=== PATIENT | female | born 1985 | race Two or more races ===

== ENCOUNTER → 2024-03-27 | Outpatient (CLI) | payer MEDICAID, SELFPAY ==
--- NOTE | 2024-03-27 08:15 | XR_ITS ---
Examination: Diagnostic digital mammography, unilateral, left Computer aided detection 3-D breast Tomosynthesis, unilateral Date and time of exam: March 27, 2024 0840 hours INDICATIONS: Mammogram January 19, 2024 10 mm focal asymmetry upper left breast MLO view, 3.5 cm from the nipple Technique: Nonmagnified MLO, CC views of the left breast have been obtained, reconstructed from 3-D Tomosynthesis images. R2 computer aided detection program utilized for evaluation of suspicious masses and/or abnormal calcifications. 3-D Tomosynthesis images obtained. Findings: The breast is heterogeneously dense, which may obscure small masses No suspicious mass noted on the spot compression views Impression: BI-RADS category 2: Benign findings Return to yearly follow-up mammography
== END | disposition home or self-care (01) ==
LOC: CDIM 08:25
PROVIDERS: Referring Provider Internal Medicine Hematology & Oncology; Visit Provider Internal Medicine Hematology & Oncology
DX: R92.322 Mammographic fibroglandular density, left breast (principal); Z85.43 Personal history of malignant neoplasm of ovary
CPT/HCPCS: 77061; 77065; G0279

== ENCOUNTER → 2024-05-07 | Outpatient (CLI) | payer MEDICAID, SELFPAY ==
--- NOTE | 2024-05-07 10:00 | XR_ITS ---
Examination: CT abdomen with intravenous contrast CT pelvis with intravenous contrast 2-D coronal reconstructions 2-D sagittal reconstructions Date and time of exam:April 29, 2024 11:00 AM Comparison January 12, 2024 INDICATIONS: Diagnosis malignant neoplasm ovary, post hysterectomy, abdominal pain hematuria beginning 2 months ago. CTDI: vol (mGy) 19.2 DLP: (mGycm) 590 Technique: Multiple axial sections of the abdomen and pelvis have been obtained. 64 slice high-resolution scanner used. 3 mm axial sections have been obtained, post intravenous injection 60 cc [id number] 2-D sagittal, coronal reconstructions obtained. Low dose protocols were performed. One or more of the following dose reduction techniques were used; automated exposure control, adjustment of the mA and/or KV according to patient size, use of iterative reconstruction technique. Findings: No focal liver or splenic lesions No gallstones No pancreatic or adrenal mass No renal or ureteral calculi No pathologic abdominal or pelvic lymphadenopathy No bowel obstruction Normal appendix No diverticulitis Anteverted uterus No adnexal mass Urinary bladder intact Osseous structures intact IMPRESSION: No interval metastatic disease No renal or ureteral calculi, no hydronephrosis No bladder mass or bladder calculi
== END | disposition home or self-care (01) ==
LOC: CCTX 09:50
PROVIDERS: PCP Family Medicine; Referring Provider Internal Medicine Hematology & Oncology; Visit Provider Internal Medicine Hematology & Oncology
DX: R10.9 Unspecified abdominal pain (principal); Z85.43 Personal history of malignant neoplasm of ovary
CPT/HCPCS: 74177; A4649; Q9967

== ENCOUNTER 2024-08-15 13:04 | Outpatient (RCR) | payer MEDICAID, SELFPAY ==
--- NOTE | 2024-08-18 22:00 | CTCFLWUP_ITS ---
Patient: BILL REEVES : 1985 Page 4 of 6 FOLLOW UP NOTE DATE OF SERVICE: 08/15/2024 NAME: BILL REEVES ACCOUNT: [id number] : 1985 AGE: 38 INTERVAL HISTORY: Subjective: Chief Complaint Stomach inflammation, colic pain, and swelling for over a month, leg swelling for over a month, weight gain, frequent herpes outbreaks History of Present Illness Lala cardenas is a patient with a history of bilateral ovarian cancer, status post-oophorectomy at 18 and 35, presenting with stomach inflammation, colic pain, and leg swelling for over a month. The patient also reports weight gain and frequent herpes outbreaks. The patient has been experiencing stomach inflammation, colic pain, and swelling, particularly in the legs, for more than a month. These symptoms are accompanied by noticeable weight gain. The patient does not mention any specific aggravating or alleviating factors for these symptoms, nor does she describe their severity or impact on daily functioning. In addition to the gastrointestinal and edema symptoms, the patient reports frequent herpes outbreaks. These outbreaks are being treated with valacyclovir, but the frequency of occurrences suggests that the current treatment may not be fully effective. The patient's overall health status appears to have changed since the last visit, with the emergence of new gastrointestinal symptoms and leg swelling. At the previous visit, the patient had complained of vaginal bleeding, but this symptom is not mentioned in the current visit, suggesting it may have resolved. Regarding treatment adherence, the patient continues to take estradiol 0.5 mg daily and progesterone 100 mg daily as part of her hormone replacement therapy. She is also taking valacyclovir for herpes outbreaks, although the frequency of outbreaks suggests a need for treatment adjustment. Medical History - Bilateral ovarian cancer - Stomach inflammation - Colic pain - Leg swelling - Weight gain - Frequent herpes outbreaks Surgical History - Left oophorectomy at age 35 - Bilateral oophorectomy at age 18 Medications and Supplements - Estradiol 0.5 mg by mouth daily - Progesterone 100 mg by mouth daily - Valacyclovir 500 mg by mouth daily - Treats frequent herpes outbreaks - Vitamin D - Dosage not specified Social History - Exercise: Exercise suggested to manage weight gain Immunizations - Herpes: Patient referred to infectious disease specialist for potential vaccination Review of Systems General: Positive for weight gain. Gastrointestinal: Positive for stomach inflammation, colic pain. Musculoskeletal: Positive for leg swelling. Genitourinary: Positive for vaginal bleeding. Objective: Laboratory, Imaging, and Diagnostic Test Results - CT (May 07, 2024): No evidence of metastatic disease - Tumor markers: Normal - Hemoglobin: Normal - Kidney function tests: Normal - Liver function tests: Normal - Genetic testing for breast cancer risk: Negative Assessment and Plan: Lala cardenas, female with history of bilateral ovarian cancer status post-oophorectomy, presents with stomach inflammation, colic pain, and leg swelling for over a month, along with weight gain and frequent herpes outbreaks. Bilateral ovarian cancer, status post-oophorectomy Assessment: Patient has a history of bilateral ovarian cancer, with left oophorectomy at age 35 and right oophorectomy at age [address] scan on May 07, 2024, showed no evidence of metastatic disease. Current tumor markers, hemoglobin, kidney, and liver functions are normal, indicating no active disease. 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 Claritin - 10 mg 1 tab Daily 2. escitalopram oxalate - 10 mg 1 tab Daily 3. estradiol - 0.5 mg 1 tab Daily 4. Flonase Allergy Relief - 50 mcg/actuation 1 spray Daily 5. Fluticasone Propionate (Nasal) - 50 mcg/DOSE 1 spray Daily 6. proGESTerone micronized - 100 mg 1 Capsule Daily 7. pseudoephedrine HCl - 120 mg 1 tab Every 12 Hours 8. sertraline - 25 mg 1 tab Daily Medications Last Reconciled by Alessia Lay RN on 08/15/2024 ALLERGIES: REVIEW OF SYSTEMS: A complete 14-point review of systems was performed and is negative except as noted in interval history. PHYSICAL EXAMINATION: VITAL SIGNS: Temperature?99.8, B/P?106/80, Oxygen?Saturation?98% Weight?166?lbs PAIN: 2 - Mild pain ECOG Performance Status: 0 - Asymptomatic and fully active GENERAL APPEARANCE: Appears well, in no apparent distress, appropriately interactive. HEENT: Normocephalic, no temporal wasting, normal conjunctiva, no scleral icterus, normal hearing, lips without lesions, neck normal range of motion. CARDIOVASCULAR: Not assessed. PULMONARY: Normal respiratory effort, no respiratory distress or use of accessory muscles, speaking in full sentences, no tachypnea. EXTREMITIES: No pedal edema or cyanosis. SKIN: Normal skin appearance. NEUROLOGIC: Alert and oriented x4. PSHYCHIATRIC: Appropriate affect, mood normal, behavior normal, intact thought and speech. LABORATORY DATA: I have personally reviewed and interpreted each of the patient?s relevant lab tests, abnormal findings are below: Date 01/30/24 ??WHITE?BLOOD?COUNT?(Thou/mm3) 6.3 ??RED?BLOOD?COUNT?(Miln/mm3) 4.93 ??HEMOGLOBIN?(gm/dl) 14.0 ??HEMATOCRIT?(%) 42.6 ??PLATELET?COUNT?(Thou/mm3) 277 ??NEUTROPHILS?%,?AUTO?(%) 53 ??LYMPH?%,?AUTO?(%) 38 ??NEUTROPHILS,?AUTO?(Thou/mm3) 3.4 ??GLUCOSE,RANDOM?(mg/dL) 89 ??BLOOD?UREA?NITROGEN?(mg/dL) 13 ??CREATININE?(mg/dL) 0.70 ??SODIUM?(mmol/L) 137 ??POTASSIUM?(mmol/L) 4.0 ??CHLORIDE?(mmol/L) 107 ??CrCl?(CandG)?(ml/min) 122.13 ??AST/SGOT?(Unit/L) <?8 ??ALT/SGPT?(Unit/L) 20 ??ALKALINE?PHOSPHATASE?(Unit/L) 106 ??BILIRUBIN,?TOTAL?(mg/dL) 0.5 ??PROTEIN?TOTAL?(gm/dl) 7.3 ??ALBUMIN,?SERUM?(gm/dl) 4.8 ??GLOBULIN?(gm/dl) 2.5 ??ALBUMIN/GLOBULIN?RATIO 1.9 ??CALCIUM,?SERUM?(mg/dL) 10.0 ??CALCIUM?SERUM?(CORRECTED)?(mg/dL) 10.0 ??CEA?(O*)?(ng/ml) 1.7 ??CA?125?(O*)?(Unit/mL) 9.0 ASSESSMENT/PLAN: 1. History of bilateral ovarian cancers. 2. S/p right oophorectomy for ovarian cancer when patient was 18 years of age. 3. Status post left oophorectomy for ovarian cancer at age 35. 4. Maternal grandmother as well as paternal aunt had breast cancers. Assessment: Patient reports stomach inflammation, colic pain, and swelling, particularly in the legs, for over a month. These symptoms, along with weight gain, may be related to hormone replacement therapy or other underlying causes. Further evaluation may be necessary to determine the etiology. Plan: - Monitor symptoms and weight - Encourage exercise to manage weight gain Hormone replacement therapy Assessment: Patient is currently on estradiol 0.5 mg daily and progesterone 100 mg daily for hormone replacement therapy. Given the patient's history of ovarian cancer and slightly elevated breast cancer risk (16% compared to 13% in the general population), continuation of hormone therapy requires careful consideration. Plan: - Continue estradiol 0.5 mg PO daily - Continue progesterone 100 mg PO daily - Advise discontinuation of hormone replacement therapy by age 45-47 to reduce breast cancer risk - Recommend daily Vitamin D supplementation Recurrent herpes outbreaks Assessment: Patient reports frequent herpes outbreaks, currently treated with valacyclovir. The frequency of outbreaks suggests the need for more aggressive management and potential preventive measures. Plan: - Prescribe valacyclovir 500 mg PO daily for suppression - Advise increased water intake - Refer to infectious disease specialist for potential vaccination Cancer surveillance Assessment: Given the patient's history of ovarian cancer and slightly elevated breast cancer risk, ongoing cancer surveillance is crucial. Genetic testing for breast cancer risk was negative, but regular monitoring is still warranted. Plan: - Continue regular mammograms as advised - Maintain regular follow-up appointments for cancer surveillanceHISTORY OF PRESENT ILLNESS: Bill Reeves is a 38-year-old S[place] speaking Other female has the following oncology history. She recently came to [facility]. She does not have any medical records with her. All this information that I am documenting below is verbally conveyed to me by the. At age 18 she had her right ovary removed for ovarian cancer. Ms. Reeves states that she had a large mass in the right ovary and it was removed. She did not get any chemotherapy or radiation therapy at that time. At age 35 she had her left ovary removed for a large tumor. Again she did not get any chemotherapy or radiation. She did not have hysterectomy done. Patient's paternal grandmother had breast cancer. Patient's paternal aunt also had breast cancer. ORDERS: Order # Description [id number] 3D Mammogram Screening + Bilateral [id number] Comprehensive Metabolic Panel - 12 + CBC with Auto Diff + CA 125 RETURN TO CLINIC: BILLING AND COMPLIANCE: I reviewed external records from providers outside my specialty as summarized above. I spent a total of 50 minutes on this patient?s care on the day of their visit excluding time spent related to any billed procedures. This time includes time spent with the patient as well as time spent documenting in the medical record, reviewing patients records and tests, obtaining history, placing orders, communicating with other healthcare professionals, counseling the patient, family or caregiver, and/or care coordination for the diagnoses above. Electronically Signed by: Abelino Cline MD T: 9:57 PM CC: PCP: Abelino Cline Referring: Abelino Cline This document was completed utilizing speech recognition software. Grammatical errors, random word insertions, pronoun errors, and incomplete sentences are an occasional consequence of this system due to software limitations, ambient noise, and hardware issues. Any formal questions or concerns about the content, text or information contained within the body of this dictation should be directly addressed to the provider for clarification.
== END 2024-09-07 23:59 | disposition home or self-care (01) ==
LOC: SCTC 13:04
PROVIDERS: PCP Physician Assistant Medical; Referring Provider Internal Medicine Hematology & Oncology; Visit Provider Internal Medicine Hematology & Oncology
DX: Z08 Encounter for follow-up examination after completed treatment for malignant neoplasm (principal); Z85.43 Personal history of malignant neoplasm of ovary; Z90.722 Acquired absence of ovaries, bilateral; Z80.3 Family history of malignant neoplasm of breast; B00.9 Herpesviral infection, unspecified; Z79.899 Other long term (current) drug therapy; Z79.890 Hormone replacement therapy
CPT/HCPCS: 99213; G0463

== ENCOUNTER 2025-02-13 11:27 | Outpatient (RCR) | payer MEDICAID, SELFPAY ==
--- NOTE | 2025-02-18 17:33 | CTCFLWUP_ITS ---
Patient: BILL ABBOTT : 1985 Page 2 of 5 FOLLOW UP NOTE DATE OF SERVICE: 02/13/2025 NAME: BILL ABBOTT ACCOUNT: [id number] : 1985 AGE: 39 INTERVAL HISTORY: Patient is on HRT therapy and c/o bleeding in vagina . spotting , breast tenderness. [place] and no records awailable for us. No benefit from acyclovir ONCOLOGY HISTORY: DIAGNOSIS: Ovarian cancer /mass history DATE OF DIAGNOSIS: Unknown STAGE/TNM: Likely ear;ly stage as no adjuvant therapy was done TREATMENT HISTORY: Care?Plan Start?Date Cycle Day Intent HISTORY OF PRESENT ILLNESS: Lala cardenas is a patient with a history of bilateral ovarian cancer, status post-oophorectomy at 18 and 35, presenting with stomach inflammation, colic pain, and leg swelling for over a month. The patient also reports weight gain and frequent herpes outbreaks.Regarding treatment adherence, the patient continues to take estradiol 0.5 mg daily and progesterone 100 mg daily as part of her hormone replacement therapy. She is also taking valacyclovir for herpes outbreaks, although the frequency of outbreaks suggests a need for treatment adjustment. Patient came to [facility]. She does not have any medical records with her. All this information that I am documenting below is verbally conveyed to me by the patient . At age 18 she had her right ovary removed for ovarian cancer. Ms. Abbott states that she had a large mass in the right ovary and it was removed. She did not get any chemotherapy or radiation therapy at that time. At age 35 she had her left ovary removed for a large tumor. Again she did not get any chemotherapy or radiation. She did not have hysterectomy done. Patient's paternal grandmother had breast cancer. Patient's paternal aunt also had breast cancer. 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 Claritin - 10 mg 1 tab Daily 2. Cortisone (hydrocortisone) - 1 % 10 mg Daily 3. escitalopram oxalate - 10 mg 1 tab Daily 4. estradiol - 0.5 mg 1 tab Daily 5. Flonase Allergy Relief - 50 mcg/actuation 1 spray Daily 6. Fluticasone Propionate (Nasal) - 50 mcg/DOSE 1 spray Daily 7. proGESTerone micronized - 100 mg 1 Capsule Daily 8. pseudoephedrine HCl - 120 mg 1 tab Every 12 Hours 9. sertraline - 25 mg 1 tab Daily 10. venlafaxine - 37.5 mg 1 tab Daily Medications Last Reconciled by Lashell Chamberlain MD on 02/13/2025 ALLERGIES: REVIEW OF SYSTEMS: A complete 14-point review of systems was performed and is negative except as noted in interval history. PHYSICAL EXAMINATION: VITAL SIGNS: Temperature?97.1, B/P?106/67, Oxygen?Saturation?99% Weight?174?lbs PAIN: 0 - No pain ECOG Performance Status: 1 - Symptomatic; ambulatory; restricted in strenuous activity GENERAL APPEARANCE: Appears well, in no apparent distress, appropriately interactive. HEENT: Normocephalic, no temporal wasting, normal conjunctiva, no scleral icterus, normal hearing, lips without lesions, neck normal range of motion. CARDIOVASCULAR: Not assessed. PULMONARY: Normal respiratory effort, no respiratory distress or use of accessory muscles, speaking in full sentences, no tachypnea. EXTREMITIES: No pedal edema or cyanosis. SKIN: Normal skin appearance. NEUROLOGIC: Alert and oriented x4. PSHYCHIATRIC: Appropriate affect, mood normal, behavior normal, intact thought and speech. LABORATORY DATA: I have personally reviewed and interpreted each of the patient?s relevant lab tests, abnormal findings are below: Date 01/30/24 ??WHITE?BLOOD?COUNT?(Thou/mm3) 6.3 ??RED?BLOOD?COUNT?(Miln/mm3) 4.93 ??HEMOGLOBIN?(gm/dl) 14.0 ??HEMATOCRIT?(%) 42.6 ??PLATELET?COUNT?(Thou/mm3) 277 ??NEUTROPHILS?%,?AUTO?(%) 53 ??LYMPH?%,?AUTO?(%) 38 ??NEUTROPHILS,?AUTO?(Thou/mm3) 3.4 ??GLUCOSE,RANDOM?(mg/dL) 89 ??BLOOD?UREA?NITROGEN?(mg/dL) 13 ??CREATININE?(mg/dL) 0.70 ??SODIUM?(mmol/L) 137 ??POTASSIUM?(mmol/L) 4.0 ??CHLORIDE?(mmol/L) 107 ??CrCl?(CandG)?(ml/min) 122.13 ??AST/SGOT?(Unit/L) <?8 ??ALT/SGPT?(Unit/L) 20 ??ALKALINE?PHOSPHATASE?(Unit/L) 106 ??BILIRUBIN,?TOTAL?(mg/dL) 0.5 ??PROTEIN?TOTAL?(gm/dl) 7.3 ??ALBUMIN,?SERUM?(gm/dl) 4.8 ??GLOBULIN?(gm/dl) 2.5 ??ALBUMIN/GLOBULIN?RATIO 1.9 ??CALCIUM,?SERUM?(mg/dL) 10.0 ??CALCIUM?SERUM?(CORRECTED)?(mg/dL) 10.0 ??CEA?(O*)?(ng/ml) 1.7 ??CA?125?(O*)?(Unit/mL) 9.0 ASSESSMENT/PLAN: 1. History of bilateral ovarian cancers. 2. S/p right oophorectomy for ovarian cancer when patient was 18 years of age. 3. Status post left oophorectomy for ovarian cancer at age 35. 4. Maternal grandmother as well as paternal aunt had breast cancers. Assessment: Patient reports stomach inflammation, colic pain, and swelling, particularly in the legs, for over a month. These symptoms, along with weight gain, may be related to hormone replacement therapy or other underlying causes. Further evaluation may be necessary to determine the etiology. Plan: - stop HRT - refer to gynecology oncology Hormone replacement therapy Assessment: Patient is currently on estradiol 0.5 mg daily and progesterone 100 mg daily for hormone replacement therapy. Given the patient's history of ovarian cancer and slightly elevated breast cancer risk (16% compared to 13% in the general population), continuation of hormone therapy requires careful consideration. Plan: -stop HRT and follow with CLEARANCE REPRESENTATIVE - Recommend daily Vitamin D supplementation Recurrent herpes outbreaks No benefit from acyclovir Refer to CLEARANCE REPRESENTATIVE for expert opinion Cancer surveillance Assessment: Given the patient's history of ovarian cancer and slightly elevated breast cancer risk, ongoing cancer surveillance is crucial. Genetic testing for breast cancer risk was negative, but regular monitoring is still warranted. Plan: - Continue regular mammograms as advised - Maintain regular follow-up appointments for cancer surveillance ORDERS: Order # Description [id number] DXA L-Spine and Hip [id number] Comprehensive Metabolic Panel - 12 + CBC with Auto Diff [id number] MD Follow Up 2 Months [id number] RETURN TO CLINIC: I reviewed the diagnosis, prognosis, and recommended treatment/procedure options with the patient (and/or their legal architectural representative), including the potential benefits, risks, side effects and alternative therapies. We also discussed the option of no treatment and the possibility of clinical trial participation, if applicable. All questions were addressed, and they demonstrated understanding. They provided informed consent to proceed with the proposed plan of care. BILLING AND COMPLIANCE: I reviewed external records from providers outside my specialty as summarized above. I spent a total of 50 minutes on this patient?s care on the day of their visit excluding time spent related to any billed procedures. This time includes time spent with the patient as well as time spent documenting in the medical record, reviewing patients records and tests, obtaining history, placing orders, communicating with other healthcare professionals, counseling the patient, family or caregiver, and/or care coordination for the diagnoses above. Electronically Signed by: Abelino Cline MD T: 5:30 PM CC: PCP: Pari Wilson Referring: Pari Wilson This document was completed utilizing speech recognition software. Grammatical errors, random word insertions, pronoun errors, and incomplete sentences are an occasional consequence of this system due to software limitations, ambient noise, and hardware issues. Any formal questions or concerns about the content, text or information contained within the body of this dictation should be directly addressed to the provider for clarification.
== END 2025-03-09 23:59 | disposition home or self-care (01) ==
LOC: SCTC 11:27
PROVIDERS: PCP Physician Assistant Medical; Referring Provider Physician Assistant Medical; Visit Provider Internal Medicine Hematology & Oncology
DX: Z08 Encounter for follow-up examination after completed treatment for malignant neoplasm (principal); Z85.43 Personal history of malignant neoplasm of ovary; Z90.722 Acquired absence of ovaries, bilateral; Z80.3 Family history of malignant neoplasm of breast; Z79.890 Hormone replacement therapy; B00.9 Herpesviral infection, unspecified; N93.9 Abnormal uterine and vaginal bleeding, unspecified; R10.9 Unspecified abdominal pain; R60.0 Localized edema; R63.5 Abnormal weight gain
CPT/HCPCS: 99212; G0463

== ENCOUNTER → 2025-03-12 | Outpatient (CLI) | payer MEDICAID, SELFPAY ==
--- NOTE | 2025-03-12 08:15 | XR_ITS ---
Examination: Screening digital mammography, bilateral Computer aided detection 3-D breast Tomosynthesis, bilateral Date and time of exam: March 12, 2025, 0813 hours, compared to mammograms dating to January 19, 2024 Indication: Screening Technique: Nonmagnified MLO, CC views of the breasts to been obtained, reconstructed from 3-D Tomosynthesis images. R2 computer aided detection program utilized for evaluation of suspicious masses and/or abnormal calcifications. 3-D Tomosynthesis images obtained. Findings: The breasts are heterogeneously dense, which may obscure small masses Benign calcifications. No interval suspicious masses Impression: BI-RADS category II: Benign Findings. Recommend 1 year follow-up mammogram.
== END | disposition home or self-care (01) ==
LOC: CDIM 07:59
PROVIDERS: Referring Provider Internal Medicine Hematology & Oncology; Visit Provider Internal Medicine Hematology & Oncology
DX: Z12.31 Encounter for screening mammogram for malignant neoplasm of breast (principal); R92.323 Mammographic fibroglandular density, bilateral breasts; R92.1 Mammographic calcification found on diagnostic imaging of breast; Z85.43 Personal history of malignant neoplasm of ovary
CPT/HCPCS: 77063; 77067

== ENCOUNTER → 2025-03-27 | Outpatient (CLI) | payer MEDICAID, SELFPAY ==
--- NOTE | 2025-03-27 12:20 | XR_ITS ---
Examination: Bone densitometry Date and time of exam: March 27, 2025, 1233 hours INDICATIONS: Postmenopausal age 35, history of ovarian carcinoma, estrogen administration 6 months, family history, grandmother osteoporosis Technique: Lumbar spine and hip total bone mineralization values of an calculated. Peak reference and age match control results have been displayed. Findings: Lumbar spine total bone mineralization is 0.958 gm/cm2. This is 0.8 standard deviations below peak reference. This is 0.6 standard deviations below age-matched controls. Hip total bone mineralization is 0.964 gm/cm2 This is 0.0 standard deviations at peak reference. This is 0.0 standard deviations at age-matched controls Impression: There is normal mineralization based on lumbar spine measurements. There is normal mineralization based on hip measurements
== END | disposition home or self-care (01) ==
LOC: CDIM 11:54
PROVIDERS: Referring Provider Internal Medicine Hematology & Oncology; Visit Provider Internal Medicine Hematology & Oncology
DX: M81.0 Age-related osteoporosis without current pathological fracture (principal); Z85.43 Personal history of malignant neoplasm of ovary
CPT/HCPCS: 77080